=== PATIENT | female | born 1990 | race Caucasian/White ===

== ENCOUNTER 2019-07-05 18:04 | Outpatient (CLI) | payer OTHER, SELFPAY ==
[2019-07-05] VITALS (20 sets, daily range): BP systolic 0–154; BP diastolic 0–91; PULSE 69–102; TEMP 37; BMI 36.6
--- NOTE | 2019-07-05 18:42 | US_ITS ---
WS: [id number] ULTRASOUND PELVIS TECHNIQUE: Transvaginal. CLINICAL INFORMATION: Vaginal Bleeding, history of placenta previa COMPARISON: March 13, 2019 FINDINGS: Normal uterus and cervix visualized today. Cervix measures 4.2 CM. No evidence of placenta previa. Adnexa: Normal. Free fluid: None. Other findings: None. US/US transvaginal [id number] IMPRESSION: Limited examination with no evidence of placenta previa today. Cervix measures 4.2 CM.
[2019-07-05 20:33] LABS: Total Protein, Random Urine 12.6 mg/dL (0.0-20.0)
== END 2019-07-05 21:12 | disposition home or self-care (01) ==
LOC: OPOB 18:11 → OBGYN 21:04 → OPOB 07-06 08:09
PROVIDERS: Visit Provider Family Medicine
DX: O46.90 Antepartum hemorrhage, unspecified, unspecified trimester (principal); Z3A.00 Weeks of gestation of pregnancy not specified; Z87.59 Personal history of other complications of pregnancy, childbirth and the puerperium
CPT/HCPCS: 76830; 84156; 99211

== ENCOUNTER 2019-07-19 01:15 | Inpatient (IN) | payer OTHER, SELFPAY ==
[2019-07-19] VITALS (95 sets, daily range): BP systolic 0–163; BP diastolic 0–86; PULSE 60–156; RESP 16–18; TEMP 36.4–36.9; O2SAT 98–100; BMI 36.5
[2019-07-19] MEDS: lactated ringers 1,000 ML 999 ML IV (03:22)
[2019-07-19] MEDS: ampicillin 2,000 MG in sodium chloride 0.9% (plus) 50 ML 100 MG IV (03:24)
[2019-07-19 03:39] LABS: Basophils % 0.1 %; Eosinophils # 0.1 10^3/uL (0.0-0.8); Eosinophils % 0.7 %; Hematocrit 35.5 % (37.0-47.0); Hemoglobin 12.3 g/dL (11.5-15.3); Lymphocytes # 1.8 10^3/uL (0.8-4.8); Lymphocytes % 12.2 %; Mean Corpuscular HGB Conc 34.6 g/dL (30.0-36.0); Mean Corpuscular Hemoglobin 32.5 pg (28.0-34.0); Mean Corpuscular Volume 93.7 fL (81-99); Mean Platelet Volume 11.6 fL (7.4-10.4); Monocytes % 6.4 %; Neutrophils % 80.1 %; Nucleated Red Blood Cells % 0 %; Platelet Count 235 10^3/cmm (130-400); Red Blood Count 3.79 10^6/uL (4.1-5.3); White Blood Count 14.9 10^3/uL (4.0-10.0)
[2019-07-19] MEDS: dextrose 5%-lactated ringers 1,000 ML 125 ML IV ×2 (04:23→12:17)
--- NOTE | 2019-07-19 04:40 | ANES.PREANE2 ---
Pre-Anesthetic Assessment Pre-Anesthetic Assessment: Height/Weight: Height 1.7 m Weight 105.687 kg Temp Pulse BP 98.4 F 70 146/67 07/19/19 03:03 07/19/19 04:29 07/19/19 04:29 Preop Diagnosis: labor Proposed Procedure: eoidural Was Beta Grant taken within 24 hours: N/A Last Intake: 18:00 Social: Social History: No alcohol and No tobacco Exam: Pre-Anes Outpt Exam: alert, oriented x 3, clear to auscultation bilaterally and regular rate & rhythm Airway: Submandibular: WNL Cervical ROM: WNL MP: 2 Pulmonary: Pulmonary: None reported CV/HEM: CV/HEM: None reported : : None reported Hepatic: Hepatic: None reported GI: GI: None reported Metabolic: Metabolic: None reported Musc/skel: Musc/skel: None reported Neuropsych: Neuropsych: Anxiety and Depression Anesthetic Plan: ASA status: 2 Anesthesia: Anesthesia Evaluation and Regional (specify below) (epi) Risk of > 500 ml blood loss (7ml/kg in children): No Meds/Allergies Current Medications: Current Medications Generic Name Dose Route Start Last Admin Trade Name Freq PRN Reason Stop Dose Admin Ampicillin Sodium 2,000 mg/ 50 mls @ 100 mls/ hr 07/19/19 03:15 07/19/19 03:57 Sodium Chloride IV Infused ONCE KESHAWN Infusion Protocol Dextrose/Lactated Ringer's 1,000 mls @ 125 m ls/hr 07/19/19 03:03 07/19/19 04:23 Dextrose 5%-Lact ated Ringers IV 125 mls/hr .Q8H PRN Administration LABOR INDUCTION Lactated Ringer's 1,000 mls @ 999 m ls/hr 07/19/19 03:07 07/19/19 04:23 Lactated Ringers IV Infused .Q1H1M PRN Infusion ANESTHESIA PFSH Anesthesia Female Reproductive History: : 2 Data Anesthesia CBC & Chem 7: 07/19/19 03:20 Other Labs: Laboratory Results - last 48 hr 07/19/19 03:20 WBC 14.9 H RBC 3.79 L Hgb 12.3 Hct 35.5 L MCV 93.7 MCH 32.5 MCHC 34.6 RDW 13.0 Plt Count 235 MPV 11.6 H Neut % (Auto) 80.1 Lymph % (Auto) 12.2 [place] % (Auto) 6.4 Eos % (Auto) 0.7 Baso % (Auto) 0.1 Neut # (Auto) 12.0 H Lymph # (Auto) 1.8 [place] # (Auto) 1.0 H Eos # (Auto) 0.1 Baso # (Auto) 0.0 Nucleated RBC % (auto) 0 Nucleated RBCs # 0.0 Cardiac Studies: No Data to Display
--- NOTE | 2019-07-19 05:17 | P.ANES_ITS ---
Anesthesia Procedures Procedure/Date: 07/19/19 Epidural: Time Out Performed: Yes Consents Signed: Procedure Consent Consent: requested by attending/covering physician and from patient Lumbar Level: L3-L4 Epidural position: sitting Epidural procedure: sterile prep of area (betadine), 1% lidocaine to numb the area (3), 18 g needle, neg for pare sthesia, test dose given, 1.5% xylocaine 1:200k epi (5ml), 0.2% Ropivacaine bolus ml (5ml), placed PCEA, no systemic response, sterile dressing applied, L.U.D. no apparent complications and 0.2% Ropiavacaine @ mls/hr (13ml/hr) Additional Comments: pt good resp effort vss resting comfortable
[2019-07-19] MEDS: ondansetron 2 mg/ML SDV 2 mL 4 MG IVP (06:29)
[2019-07-19] MEDS: ampicillin 1,000 MG in sodium chloride 0.9% (plus) 50 ML 100 MG IV ×2 (07:22→11:04)
[2019-07-19] MEDS: oxytocin 30 UNIT/500 ML BAG 600 UNIT IV (12:40)
--- NOTE | 2019-07-19 12:43 | PM.DELIVERY ---
 Delivery Note: Date of delivery: July 19, 2019 This 28-year-old 2 now para 2 female with an EDC of 08/01/2019 had spontaneous onset of labor late last night. She arrived [facility] labor and delivery in labor. She received epidural anesthesia the night prior to delivery. She has been followed by Dr. Avendaño who was not available at time of delivery and care was passed to this physician. She labored to complete cervical dilatation with bulging bag of water. This physician had been called and performed artificial rupture membranes with large amount of clear fluid obtained. She was placed in lithotomy position for delivery and pushed very well and was able to deliver by spontaneous vaginal delivery a healthy, viable female at 1222. Upon delivery of the head the mouth and nose were suctioned with a bulb syringe followed by delivery of the remainder of the infant. There was no nuchal cord. Upon delivery of the the infant was again suctioned and laid on mother's abdomen. After approximately 1 minute the umbilical cord was clamped and then cut by the infant's father. The umbilical cord had 3 blood vessels. There was no episiotomy and no laceration. The placenta delivered spontaneously at 1225 without problems. Infant Apgars were 9 and 9 at 1 and 5 minutes respectively and estimated blood loss was approximately 118 mL. This patient did receive 3 doses of IV ampicillin prior to delivery of the infant secondary to positive for group B strep in her urine throughout the . Pre-Delivery Course: This patient was followed by Dr. Avendaño throughout her . There were no significant problems through her course. Maternal blood type was A+ with antibody screen negative. The remainder of the lab work was normal except group B strep which was positive. She was given a total of 3 doses of intravenous ampicillin prior to delivery of this infant. There was no other problems or concerns prior to delivery. Delivery: Spontaneous vaginal delivery. Post-Delivery Status: Patient appears to be doing very well and will be followed for routine postdelivery care. We will adjust orders as necessary. A&P Assessment and plan (1) Normal spontaneous vaginal delivery: Patient did very well through labor and delivery process. She did receive epidural anesthesia. Plan to give routine care and will adjust orders as necessary. Status: Acute Code(s): O80 - Encounter for full-term uncomplicated delivery Coding Level of Care Code Acute Manager Site for Chg Fwd Diagnoses Normal spontaneous vaginal delivery O80
[2019-07-19] MEDS: benzocaine-menthol 78 gm Canister 1 SPRAY TOPICAL (14:28)
[2019-07-19] MEDS: lanolin oint 7 gm 1 APPLIC TOPICAL (14:28)
[2019-07-19] MEDS: acetaminophen 325 mg Tablet 650 MG PO (16:15)
--- NOTE | 2019-07-19 17:12 | PC.NURSE ---
pt ambulated to room 205-2 without difficulty. oriented to room/call light. proud parent pack discussed. feeding sheet discussed. pt instructed to call for assistance with next void, then may be up ad lizet.
[2019-07-19] MEDS: docusate sodium 100 mg Capsule PO (18:26)
[2019-07-20 01:42] LABS: Hematocrit 33.2 % (37.0-47.0); Hemoglobin 10.7 g/dL (11.5-15.3); Mean Corpuscular HGB Conc 32.2 g/dL (30.0-36.0); Mean Corpuscular Hemoglobin 31.3 pg (28.0-34.0); Mean Corpuscular Volume 97.1 fL (81-99); Mean Platelet Volume 11.7 fL (7.4-10.4); Platelet Count 204 10^3/cmm (130-400); Red Blood Count 3.42 10^6/uL (4.1-5.3); Red Cell Distribution Width 13.2 % (12.1-15.1); White Blood Count 16.9 10^3/uL (4.0-10.0)
[2019-07-20 02:15] VITALS: BP 111/72; PULSE 73; RESP 16
[2019-07-20 06:00] VITALS: BP 116/74; PULSE 75; RESP 16
--- NOTE | 2019-07-20 07:23 | PC.NURSE ---
Received report on patient which included that patient no longer had an IV.
--- NOTE | 2019-07-20 07:35 | PM.OBGYDC ---
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 She was GBS positive and received adequate coverage. Her labor was unremarkable. She had an epidural placed. She had an unremarkable delivery as well. Her baby was healthy. Her course was also unremarkable. She breast-fed well. Her pain was well controlled. Her bleeding was within normal limits. Information Peripartum Data: Infant Delivery Method: Vaginal Physical Exam Narrative: EXAM NARRATIVE: The patient is alert. She appears comfortable. Her heart has a regular rate and rhythm with no murmurs appreciated. Lungs are clear to auscultation bilaterally. Her fundus is firm and below the umbilicus. Urinary Catheter Management^: Ojeda: Cath Placed During This Visit: yes Urinary Catheter Date of Insertion: 07/19/19 Urinary Catheter Time of Insertion: 05:35 Discharge Data Data Completed and Pending: Labs from last 24 hours 07/20/19 01:13 WBC 16.9 H RBC 3.42 L Hgb 10.7 L Hct 33.2 L MCV 97.1 MCH 31.3 MCHC 32.2 D RDW 13.2 Plt Count 204 MPV 11.7 H Vitals: Last Vital Signs Temp 97.5 F L 07/19/19 20:40 Pulse 75 07/20/19 06:00 Resp 16 07/20/19 06:00 BP 116/74 07/20/19 06:00 Pulse Ox 98 07/19/19 05:04 Discharge Plan Discharge Patient Disposition: Home, Self-Care Condition: Stable Prescriptions: New ibuprofen 800 mg Tablet 800 mg PO TID Qty: 45 RF: 0 Continued sertraline [Zoloft] 25 mg Tablet 25 mg PO DAILY RF: 0 Complete 14 mg iron- 400 mcg Tablet 1 tab PO DAILY RF: 0 Discharge Orders: Discharge Order (Routine); Ordered 07/20/19 Ordered By: Masoud Avendaño Referrals: Masoud Avendaño MD [Primary Care Provider] - 6 Weeks Discharge Diet: Usual diet Discharge Activity: Limit activity as instructed Discharge Attestations BUTANE COMPRESSOR OPERATOR Time Spent in Discharge Care*: less than 30 min Coding Level of Care Code Acute Medical Pathologist for Chg Fwd Diagnoses Normal spontaneous vaginal delivery O80
[2019-07-20] MEDS: prenatal vitamin Capsule 1 CAP PO (08:05)
[2019-07-20] MEDS: docusate sodium 100 mg Capsule PO (08:05)
[2019-07-20 10:44] VITALS: BP 120/80; PULSE 77; RESP 18; TEMP 36.7
[2019-07-20 14:09] VITALS: BP 128/83; PULSE 67; RESP 18; TEMP 36.6; O2SAT 100
--- NOTE | 2019-07-20 14:12 | PC.NURSE ---
Updated patient she is able to take the generic version of zoloft while she is . Patient acknowledged understanding.
== END 2019-07-20 14:34 | disposition home or self-care (01) | DRG 807 ==
PROVIDERS: Family Medicine; Admitting Provider Family Medicine; PCP Family Medicine; Visit Provider Family Medicine
DX: O99.344 Other mental disorders complicating childbirth (principal); Z37.0 Single live birth; O99.820 Streptococcus B carrier state complicating pregnancy; F41.8 Other specified anxiety disorders; F32.9 Major depressive disorder, single episode, unspecified; Z3A.38 38 weeks gestation of pregnancy
CPT/HCPCS: 12345; 36415; 51702; 59409; 85025; 85027; 96375; 99211; G0378; G0379; J0290; J2405; J2795

== ENCOUNTER 2022-01-24 09:24 | Emergency (ER) | payer OTHER, SELFPAY ==
[2022-01-24 09:28] VITALS: BP 137/91; PULSE 75; RESP 12; TEMP 36.6; O2SAT 100; BMI 36.8
--- NOTE | 2022-01-24 09:47 | USCV_ITS ---
Natalie Calabrese Age: 31 Gender: F : 1990 Exam Date: 01/24/2022 10:01 Ordering Phys: Milan Cormier DO Technologist: ASHWIN Exam Location: [facility] [place] Indication: RLE SWELLING [id number] HISTORY: Lower extremity swelling. PROCEDURES: Venous duplex imaging was performed in only the right lower extremity. The following venous structures were evaluated: common femoral vein, profunda vein, proximal portion of the greater saphenous vein, superficial femoral vein, and the popliteal vein. In addition, the posterior tibial and peroneal trunk were evaluated. Serial compression, augmentation maneuvers, and spectral Doppler flow evaluation were performed. FINDINGS: Normal 2-D Doppler and augmentation and compressibility throughout the lower extremity venous structures. Additional imaging through the proximal calf veins also reveals no thrombus. Limited evaluation of the greater saphenous vein is patent with no thrombus. No soft tissue abnormality right thigh. CONCLUSIONS No DVT right lower extremity. Dr. Kathleen Oreilly DO (Electronically Signed) Final Date: 24 January 2022 11:49 S
--- NOTE | 2022-01-24 09:51 | PC.PHAR ---
pt states she takes care of her own medications-pt states she only takes lamotrigine 100mg qam pt states she got a steroid shot last week
--- NOTE | 2022-01-24 09:55 | W.ED.GENADLT ---
HPI - General Adult General: Chief complaint: General Medical Stated complaint: Sent from after ultrasound on right leg Time Seen by Provider: 01/24/22 09:33 Source: patient Mode of arrival: ambulatory History of Present Illness: 31-year-old female who presents to the emergency room with complaints of swelling in her leg. She has been seen couple times recently she was seen today in evaluation complaining of leg pain no chest pain no shortness of breath primary care doctor referred to the ER after seeing patient for venous duplex. Onset (ago): week(s) Location: lower extremity (Right) Severity: mild Quality: aching Pain Consistency: intermittent Relieving factors: none Exacerbating factors: none Associated symptoms: Deny chest pain, confusion, cough, diaphoresis, decreased appetite, dyspnea, fevers/chills, headache(s), malaise, nausea, rash, palpitations, seizures, short of breath, syncope, vomiting or weakness Treatments prior to arrival: none Review of Systems Const: Denies: fever(s), chills, fatigue, malaise or diaphoresis ENMT: Denies: throat pain, ear or mastoid pain, nasal discharge or nasal congestion Card: Denies: chest pain, palpitations or syncope Resp: Denies: dyspnea GI: Denies: nausea or vomiting : Denies: flank pain, difficulty voiding, dysuria, urinary frequency or urinary urgency Skin/Breast: Denies: rash Neuro: Denies: headache(s) or confusion [facility] [place] [place] ED PFSH: Medical History Depression Surgical History No pertinent past surgical history Social History Smoking and tobacco status: never smoked Physical Exam Const: COMMON NORMALS: no acute distress GENERAL APPEARANCE: cooperative and comfortable ORIENTATION/CONSCIOUSNESS: Yes awake, Yes oriented to person, Yes oriented to place and Yes oriented to time HENMT: COMMON NORMALS: normocephalic, atraumatic and hearing grossly normal bilaterally HEAD & SCALP: normocephalic and atraumatic Lymph: LYMPHATIC: no lymphadenopathy noted and no lymphedema noted Resp: COMMON NORMALS: normal respiratory effort, No retractions, No use of accessory muscles and clear to auscultation bilaterally AUSCULTATION: clear to auscultation bilaterally Cardio: COMMON NORMALS: regular rate, regular rhythm and No murmurs present (Cardio) RATE: regular rate RHYTHM: regular rhythm GI: COMMON NORMALS: Soft to palpation and No hepatosplenomegaly present AUSCULTATION: Yes normoactive bowel sounds PALPATION: Yes Soft to palpation, No Tenderness to palpation present (GI), No Guarding due to palpation present (GI) and Yes No hepatosplenomegaly present Extremity: COMMON NORMALS: normal to inspection, capillary refill normal, no clubbing, cyanosis or edema, no calf tenderness and no pedal edema Neuro: SENSORIUM/ORIENTATION: Yes oriented to person, Yes oriented to place and Yes oriented to time Skin: COMMON NORMALS: no rashes or lesions noted GENERAL SKIN EXAM: no rashes or lesions noted Course Vital Signs: Vital signs: Vital Signs Temperature 98 F 01/24/22 09:28 Pulse Rate 75 01/24/22 09:28 Respiratory Rate 12 01/24/22 09:28 Blood Pressure 137/91 01/24/22 09:28 Pulse Oximetry 100 01/24/22 09:28 Oxygen Delivery Me thod 01/24/22 09:28 MDM - General Adult Medical Decision Making Venous duplex negative. Suspect soft tissue in nature musculoskeletal continue anti-inflammatories Tylenol follow-up with primary care Medical Records I reviewed the patient's medical records. Lab Data I reviewed the patient's lab results. Discharge Plan Discharge Patient Disposition: Home Clinical Impression: Right leg pain Prescriptions: No Action lamotrigine 100 mg tablet 100 mg PO QAM Discharge Orders: Discharge ED (Routine); Ordered 01/24/22 Ordered By: Milan Cormier Referrals: Masoud Avendaño MD [Primary Care Provider] - Patient Instructions: Opioid Safety, Pain Management Activity Restrictions/Additional Instructions: Follow-up with primary care Coding Level of Care Code ED Package Dye Stand Loader for Kenyatta Pagan
== END 2022-01-24 10:28 | disposition home or self-care (01) ==
PROVIDERS: Emergency Provider Family Medicine; PCP Family Medicine
DX: M79.661 Pain in right lower leg (principal)
CPT/HCPCS: 93971; 99284

== ENCOUNTER → 2022-08-21 11:53 | Outpatient (BNVA) | payer OTHER, SELFPAY | PROVIDERS: PCP Family Medicine; Visit Provider Psychiatry & Neurology Psychiatry | DX: F32.1 Major depressive disorder, single episode, moderate (principal); F41.1 Generalized anxiety disorder; Z79.899 Other long term (current) drug therapy | CPT/HCPCS: 80053; 80061; 83036; 84443; 85025 ==

== ENCOUNTER → 2023-08-30 14:11 | Outpatient (BNVA) | payer OTHER, SELFPAY | PROVIDERS: PCP Family Medicine; Visit Provider Nurse Practitioner Women's Health | DX: E66.01 Morbid (severe) obesity due to excess calories (principal); Z68.41 Body mass index [BMI] 40.0-44.9, adult; Z30.41 Encounter for surveillance of contraceptive pills | CPT/HCPCS: 83036; 84439; 84443 ==

== ENCOUNTER 2023-11-29 07:44 | Outpatient (CLI) | payer OTHER, SELFPAY ==
--- NOTE | 2023-11-29 07:47 | XR_ITS ---
WS: [id number] LUMBAR SPINE: 3 VIEWS TECHNIQUE: AP, lateral and L5-S1 spot. HISTORY: vertebral tenderness COMPARISON: None available. Very mild LEFT curvature lumbar spine. Slight increase in the lumbar lordosis. No fractures. Disc spa dewey and vertebral body heights are maintained. No loss of disc space or vertebral body height. SI joints are symmetric bilaterally. No soft tissue abnormalities. XR/XR lumbar spine 2-3V* [id number] IMPRESSION: Very mild degenerative scoliosis lumbar spine. No fractures.
== END 2023-11-29 07:45 | disposition home or self-care (01) ==
LOC: RAD 07:46
PROVIDERS: PCP Family Medicine; Visit Provider Family Medicine
DX: M54.50 Low back pain, unspecified (principal); M41.86 Other forms of scoliosis, lumbar region
CPT/HCPCS: 72100

== ENCOUNTER 2023-12-12 15:11 | Outpatient (RCR) | payer OTHER, SELFPAY | END 2024-01-11 23:59 | disposition home or self-care (01) | LOC: SPT 15:11 | PROVIDERS: PCP Family Medicine; Visit Provider Family Medicine | DX: M54.50 Low back pain, unspecified (principal) | CPT/HCPCS: 97110 ==

== ENCOUNTER 2023-12-20 06:29 | Outpatient (CLI) | payer OTHER, SELFPAY ==
--- NOTE | 2023-12-20 06:30 | US_ITS ---
WS: [id number] US soft tissue/extremity [id number] REASON FOR EXAM: soft tissue mass, right medial calf FINDINGS: The ultrasound images of the palpable mass do not characterize the lesion other than the mass is not a cyst or fluid or a solid lesion of significantly different echogenicity than the surrounding tissue s. Possibly this is a lipoma. US/US soft tissue/extremity [id number] IMPRESSION: Nonspecific ultrasound findings as above. Lesion is possibly a lipoma.
== END 2023-12-20 06:30 | disposition home or self-care (01) ==
PROVIDERS: PCP Family Medicine; Visit Provider Family Medicine
DX: M79.89 Other specified soft tissue disorders (principal)
CPT/HCPCS: 76882

== ENCOUNTER → 2024-06-01 10:16 | Outpatient (BNVA) | payer SELFPAY | PROVIDERS: PCP Family Medicine; Visit Provider Nurse Practitioner | DX: Z79.899 Other long term (current) drug therapy (principal) | CPT/HCPCS: 80061; 83036 ==

== ENCOUNTER 2024-06-04 08:16 | Day surgery (SDC) | payer OTHER, SELFPAY ==
[2024-06-04] VITALS (9 sets, daily range): BP systolic 109–143; BP diastolic 61–86; PULSE 63–80; RESP 16; TEMP 36.2–36.6; O2SAT 94–100; BMI 43.4
--- NOTE | 2024-06-04 05:38 | P.HP_ITS ---
Same Day Surgery H&P Indication for Procedure/HPI DATE OF PROCEDURE: June 04, 2024 CHIEF COMPLAINT/INDICATIONFOR SURGICAL PROCEDURE: desires permanent sterilization PREOP DIAGNOSIS: desires permanent sterilization PLANNED PROCEDURE: Operation Date: 06/04/24 11:25 Proposed Procedures p Laparoscopic bilateral partial salpingectomy 04768, Z30.2(Not Applicable) - Manuel Saleem MD 33 y.o. desires permanent sterilization refuses reversible control Medications/Allergies* Home Medications Medication Instructions Recorded Confirmed Type aripiprazole 5 mg tablet (Abilify) 5 mg PO DAILY 06/03/24 06/03/24 History Allergies/Adverse Reactions Allergy/AdvReac Type Severity Reaction Status Date / Time No Known Allergies Allergy Verified 06/03/24 11:23 Pertinent History/Comorbid Conditions* Medical History (Updated 05/26/24 @ 10:14 by Lulú Camacho PMHNP) detention current use of antipsychotic medication Major depressive disorder, recurrent, mild YESENIA (generalized anxiety disorder) Psychiatric care Depression Surgical History (Updated 05/24/23 @ 15:19 by Libby Toro APN, WHKASEY) No pertinent past surgical history Family History (Updated 05/24/23 @ 14:34 by Lois Logan LPN) Diabetes Grandfather Uterine cancer Mother Grandmother Denies family history of Colon cancer Ovarian cancer Prostate cancer Heart disease Hyperlipidemia Breast cancer Hypertension Thyroid disease Stroke Social History Smoking and tobacco/nicotine status: never used tobacco/nicotine Alcohol intake: current Alcohol intake frequency: few times a month Substance/Drug Use: never Lives independently: Yes Household members: spouse and children Marital status: Number of children: 2 Current occupational status: employed 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
[2024-06-04 08:35] LABS: OR HCG Qualitative Urine Negative (Negative)
--- NOTE | 2024-06-04 08:49 | W.PM.OPSUD ---
Surgery/Procedure H&P Update DATE OF PROCEDURE: June 04, 2024 DATE H&P PERFORMED: 06/03/24 H&P UPDATE INFORMATION: I have reviewed H&P completed within last 30 days, I have examined patient prior to procedure and No changes to prior documentation PREOP DIAGNOSIS: desires permanent sterilization PLANNED PROCEDURE: Operation Date: 06/04/24 10:05 Proposed Procedures p Laparoscopic bilateral partial salpingectomy 92701, Z30.2(Not Applicable) - Manuel Saleem MD
--- NOTE | 2024-06-04 08:50 | ANES.PREANE2 ---
Pre-Anesthetic Assessment Height/Weight: Height 5 ft 7 in Weight 277 lb O2 Del Method Room Air 06/04/24 08:41 Preop Diagnosis: desires permanent sterilization Operation Date: 06/04/24 10:05 Proposed Procedures p Laparoscopic bilateral partial salpingectomy 38453, Z30.2(Not Applicable) - Manuel Saleem MD Was Beta Grant taken within 24 hours: N/A Was Clonidine taken within 24 hours: N/A Last intake: Intake Last Liquid Date 06/03/24 Last Liquid Time 23:30 Last Solid Date 06/03/24 Last Solid Time 19:00 Social No alcohol and No tobacco Exam alert, oriented x 3, clear to auscultation bilaterally and regular rate & rhythm Airway Submandibular: within normal limits Cervical ROM: within normal limits Mallampati: Class III Dentition: full Anesthetic Plan ASA status: 3 Anesthesia: General Other: No prior anesthesia history NPO since yesterday Denies any cardiac or pulmonary issues BMI 43 METs greater than 4 Plan for general anesthesia Medications/Allergies Home Medications Medication Instructions Recorded Confirmed Last Taken Type escitalopram oxalate 20 mg tablet 20 mg PO DAILY 30 days #30 tabs 05/26/24 06/03/24 06/02/24 Rx aripiprazole 5 mg tablet (Abilify) 5 mg PO DAILY 06/03/24 06/03/24 06/02/24 History Allergies Allergy/AdvReac Type Severity Reaction Status Date / Time No Known Allergies Allergy Verified 06/03/24 11:23 [facility] Anesthesia Medical History (Updated 05/26/24 @ 10:14 by [facility] USP current use of antipsychotic medication Major depressive disorder, recurrent, mild YESENIA (generalized anxiety disorder) Psychiatric care Depression Surgical History No pertinent past surgical history Family History Grandfather Diabetes Mother Uterine cancer Grandmother Uterine cancer Denies family history of Colon cancer Ovarian cancer Prostate cancer Heart disease Hyperlipidemia Breast cancer Hypertension Thyroid disease Stroke Social History Smoking and tobacco/nicotine status: never used tobacco/nicotine Alcohol intake: current Alcohol intake frequency: few times a month Substance/Drug Use: never Lives independently: Yes Household members: spouse and children Marital status: Number of children: 2 Current occupational status: employed 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
[2024-06-04] MEDS: sodium chloride 0.9% 1,000 ML 30 ML IV (09:14)
[2024-06-04] MEDS: fentaNYL 50 mcg/mL INJ 2mL IVP (10:25)
--- NOTE | 2024-06-04 11:25 | P.OP_ITS ---
Operative Report Date of procedure: June 04, 2024 Pre-op diagnosis: desires permanent sterilization Post-op diagnosis: same Post-op findings: normal uterus, tubes, and ovaries Procedure done: laparoscopic bilateral partial salpingectomy Implants: none Specimens removed/disposition: bilateral partial fallopian tube segments, sent to pathology Surgeon: Manuel Saleem MD Anesthesia: General Estimated blood loss (mL): 5 Complications: none Findings: normal uterus, tubes, and ovaries Condition: stable Disposition: PACU Brief History: 33 y.o. desires permanent sterilization Procedure: Informed consent was obtained. The patient was taken to the OR and placed on the table. General endotracheal anesthesia was induced. The patient was then placed on the table. The abdomen was prepped and draped in the usual fashion. A 5 mm subumbilical skin incision was made. A 5 mm trocar with sheath was then inserted into the peritoneal cavity under direct visualization with the laparoscope. After confirming intraperitoneal position, pneumoperitoneum was achieved. Two separate 5 mm incisions were made in the right and left mid-quadrants. 5 mm trocars with sheaths were then inserted into the peritoneal cavity under direct visualization with the laparoscope. The right fallopian tube was then identified to its fimbrial end. Starting at the fimbrial end, the mesosalpinx was then coagulated and cut using the Ligasure device. A 4 cm portion of the right fallopian tube was excised and removed via one of the ports. This was sent to pathology. There was no bleeding seen. Similarly, the left fallopian tube was identified to its fimbrial end. A 4 cm portion of the left fallopian tube was excised and removed, sent to pathology. There was no bleeding. All instruments were then removed from the peritoneal cavity after the pneumoperitoneum was allowed to escape. The skin incisions were closed using 3- O chromic in subcuticular fashion. Dermabond was applied. The patient was then placed supine and awakened, taken the the PACU in good condition. Postop condition: stable EBL: 5 cc Complications: none Sponge, needles, and instruments counts correct x two
== END 2024-06-04 11:40 | disposition home or self-care (01) ==
PROVIDERS: Student in an Organized Health Care Education/Training Program; PCP Family Medicine; Visit Provider Obstetrics & Gynecology
PROC: (CPT 58661; principal; 2024-06-04 09:55)
DX: Z30.2 Encounter for sterilization (principal)
CPT/HCPCS: 58661; 81025; 88302; J1100; J2250; J2405; J2704; J3010; J3490; J7030

== ENCOUNTER 2024-08-12 18:45 | Emergency (ER) | payer OTHER, SELFPAY ==
[2024-08-12 18:50] VITALS: BP 148/88; PULSE 84; RESP 17; TEMP 36.6; O2SAT 100; BMI 43.0
--- NOTE | 2024-08-12 19:15 | W.ED.HA ---
HPI - Headache General: Chief Complaint: Headache Stated Complaint: left side of face going numb with headache Time Seen by Provider: 08/12/24 19:05 History of Present Illness: 33-year-old female with history of obesity, depression and anxiety who presents to the emergency room with a left-sided headache, facial numbness and some left-sided facial droop. Numbness extends from the forehead all the way down to her mouth. She has some mild left lip facial droop. She is concerned this may have something to do with her hormones. She is supposed to see gynecology in the near future. No other focal motor deficits. No history of migraines. Related Data Home Medications ?Medication ?Instructions ?Recorded ?Confirmed aripiprazole 5 mg tablet (Abilify) 5 mg PO DAILY 06/03/24 08/12/24 Previous Rx's ?Medication ?Instructions ?Recorded escitalopram oxalate 20 mg tablet 20 mg PO DAILY 30 days #30 tabs 05/26/24 nystatin 100,000 unit/gram topical 1 applic topical BID #15 grams 07/14/24 cream doxycycline hyclate 100 mg capsule 100 mg PO BID 7 days #14 caps 08/12/24 prednisone 20 mg tablet 60 mg (3 x 20 mg) PO DAILY #20 tabs 08/12/24 valacyclovir 1 gram tablet 1,000 mg PO Q12H 10 days #20 tabs 08/12/24 Allergies Allergy/AdvReac Type Severity Reaction Status Date / Time No Known Allergies Allergy Verified 08/12/24 18:27 Review of Systems Narrative: Constitutional symptoms: Negative except as documented in HPI. Skin symptoms: Negative except as documented in HPI. Eye symptoms: Negative except as documented in HPI. ENMT symptoms: Negative except as documented in HPI. Respiratory symptoms: Negative except as documented in HPI. Cardiovascular symptoms: Negative except as documented in HPI. Gastrointestinal symptoms: Negative except as documented in HPI. Genitourinary symptoms: Negative except as documented in HPI. Musculoskeletal symptoms: Negative except as documented in HPI. Neurologic symptoms: Negative except as documented in HPI. Psychiatric symptoms: Negative except as documented in HPI. Endocrine symptoms: Negative except as documented in HPI. [facility] ED PFSH: Medical History (Updated 08/12/24 @ 20:30 by Karolina Johnson MD) retirement current use of antipsychotic medication Major depressive disorder, recurrent, mild YESENIA (generalized anxiety disorder) Psychiatric care Depression Surgical History No pertinent past surgical history Family History Grandfather Diabetes Mother Uterine cancer Grandmother Uterine cancer Denies family history of Colon cancer Ovarian cancer Prostate cancer Heart disease Hyperlipidemia Breast cancer Hypertension Thyroid disease Stroke Social History Smoking and tobacco/nicotine status: never used tobacco/nicotine Alcohol intake: current Alcohol intake frequency: few times a month Substance/Drug Use: never Lives independently: Yes Household members: spouse and children Marital status: Number of children: 2 Current occupational status: employed 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 Skin: warm and dry Head: Normocephalic Neck: Trachea midline Eye: Extraocular movements are intact. Ears, nose, mouth and throat: Oral mucosa moist Respiratory: Respirations are non-labored Musculoskeletal: Normal ROM Neurological: Alert and oriented, some left mouth droop. Numbness of the eyebrow eyelid and cheek. Psychiatric: Cooperative, appropriate mood & affect. Course Vital Signs: Vital signs: Vital Signs Temperature 97.8 F 08/12/24 18:50 Pulse Rate 84 08/12/24 19:53 Respiratory Rate 17 08/12/24 18:50 Blood Pressure 148/88 08/12/24 18:50 Pulse Oximetry 100 08/12/24 19:53 Oxygen Delivery Me thod Room Air 08/12/24 19:53 MDM - Headache Medical Decision Making CT head: No acute intracranial process. no intracranial hemorrhage, no evidence of infarct. no evidence of acute fracture.This was reviewed and interpreted by myself the ER physician. Reexamination: No change. No increased work of breathing. No altered mental status Assessment and plan: Issa's palsy Sinusitis Headache ?Treating for Issa's palsy. Also giving Toradol Reglan and Benadryl as this could be migraine headache with atypical features. If this treatment resolves symptoms by tomorrow told her not to fill the steroids and valacyclovir. - Discharged home - Discussed plan with patient. Answered any questions. - Evaluation and treatment of this problem were appropriate in the emergency setting. Lab Data Radiology Impressions Head CT 08/12/24 19:42 IMPRESSION: 1. No acute intracranial findings. 2. Paranasal sinus disease with findings suggestive of acute sinusitis. All radiology interpretation(s) finalized by discharge Discharge Plan Discharge Patient Disposition: Home Clinical Impression: Issa's palsy, Headache, Sinusitis Condition: Stable Prescriptions: New valacyclovir 1 gram tablet 1,000 mg PO Q12H 10 Days Qty: 20 0RF prednisone 20 mg tablet 60 mg PO DAILY Qty: 20 0RF Rx Instructions: 3 tabs (60 mg) x 3 days. 2 tabs (40 mg) x 3 days. 1 tab (20 mg) x 3 days. 1/2 tab (10 mg) x 4 days doxycycline hyclate 100 mg capsule 100 mg PO BID 7 Days Qty: 14 0RF No Action nystatin 100,000 unit/gram cream 1 applic topical BID Qty: 15 0RF escitalopram oxalate 20 mg tablet 20 mg PO DAILY 30 Days Qty: 30 3RF aripiprazole [Abilify] 5 mg tablet 5 mg PO DAILY Discharge Orders: Discharge ED (Routine); Ordered 08/12/24 Ordered By: Karolina Johnson Referrals: Rosalinda Merchant MD [Primary Care Provider] - Discharge Diet: Usual diet Discharge Activity: Increase activity as tolerated Patient Instructions: Issa's Palsy, Opioid Safety, Pain Management Activity Restrictions/Additional Instructions: Thank you for choosing [facility] for your healthcare needs today. Please realize this is an emergency room and that we are providing you with a medical screening exam and this may not be complete and all inclusive of all the testing and or work up that you may need to determine your ailment or severity of your illness. You have been screened and evaluated and felt safe for discharge. Health conditions do change or evolve sometimes and as such it is important that you follow up with your Primary Doctor to be re checked, 3-5 days is a general good time frame for follow up. You are always welcome to return to the ED for re assessment if your symptoms are worsening or you have new concerns Print Language: Faroese Coding Level of Care Code ED [employer] for Keny[employer] Pagan
[2024-08-12] MEDS: ketorolac 30 mg/mL INJ IVP (19:21)
[2024-08-12] MEDS: methylPREDNISolone sod succ 125 mg/2 mL INJ IVP (19:21)
[2024-08-12] MEDS: metoclopramide 5 mg/mL SDV 2 mL 10 MG IVP (19:21)
[2024-08-12] MEDS: diphenhydrAMINE 50 mg/mL SDV 1mL 25 MG IVP (19:21)
--- NOTE | 2024-08-12 19:42 | CTR_ITS ---
PROCEDURE INFORMATION: Exam: CT Head Without Contrast Exam date and time: 08/12/2024 7:46 PM Age: 33 years old Clinical indication: Pain; Headache; Migraine; Without aura; Additional info: Left sided facial droop. Headache TECHNIQUE: Imaging protocol: Computed tomography of the head without contrast. Radiation optimization: All CT scans at this facility use at least one of these dose optimization techniques: automated exposure control; mA and/or kV adjustment per patient size (includes targeted exams where dose is matched to clinical indication); or iterative reconstruction. COMPARISON: No relevant prior studies available. RADIATION DOSE METRICS: Total DLP (mGy-cm): 1054.8 FINDINGS: Brain: Normal. No hemorrhage. Unremarkable white matter. No mass effect. Cerebral ventricles: No ventriculomegaly. Paranasal sinuses: Patchy opacification of the ethmoid air cells and maxillary sinuses with a small amount of fluid layering in the sinuses. Mastoid air cells: Visualized mastoid air cells are well aerated. Bones: Unremarkable. No acute fracture. Soft tissues: Unremarkable. CT/CT head wo con* [id number] IMPRESSION: 1. No acute intracranial findings. 2. Paranasal sinus disease with findings suggestive of acute sinusitis.
[2024-08-12 19:53] VITALS: PULSE 84; O2SAT 100
[2024-08-12 20:55] VITALS: BP 115/76; PULSE 77; O2SAT 100
== END 2024-08-12 20:56 | disposition home or self-care (01) ==
PROVIDERS: Emergency Provider Emergency Medicine; PCP Family Medicine
DX: G51.0 Bell's palsy (principal); R51.9 Headache, unspecified; J32.9 Chronic sinusitis, unspecified
CPT/HCPCS: 70450; 96374; 96375; 99285; J1200; J1885; J2765; J2919